=== PATIENT | female | born 1985 | race Caucasian/White ===

== ENCOUNTER 2020-05-20 15:39 | Emergency (ER) | payer MEDICARE, MEDICAID, SELFPAY ==
[2020-05-20 15:48] VITALS: BP 149/75; PULSE 78; RESP 20; TEMP 36.4; O2SAT 100
--- NOTE | 2020-05-20 16:16 | ED.SKABFB ---
HPI - Skin/Abscess/Foreign Bdy General Chief complaint: Skin/Abscess/Foreign Body Stated complaint: right leg pain/red/swollen Time Seen by Provider: 05/20/20 16:16 Source: patient and RN notes reviewed History of Present Illness HPI narrative: Patient is a [age]-year-old female who presents the urgent care with complaints of a painful knot to the right leg. Patient states is been there approximately 2 days and is increased in pain and swelling. Patient denies any drainage from the area. States that she believes it started out as a bug bite which is now infected. States that she is used salve to the area without any improvement. Denies of any fever, nausea, vomiting. No other acute complaints. No acute distress noted. Patient aware of the plan of care. Some parts of this dictation were generated by voice recognition software and may contain typographical and/or grammatical inaccuracies. Related Data Home Medications Medication Instructions Recorded Confirmed dulaglutide [Trulicity] 1.5 mg SUBCUT WEEKLY 05/20/20 05/20/20 famotidine 40 mg PO DAILY 05/20/20 05/20/20 glimepiride 4 mg PO DAILY 05/20/20 05/20/20 insulin glargine [Basaglar KwikPen 15 unit SUBCUT DAILY 05/20/20 05/20/20 U-100 Insulin] linagliptin [Tradjenta] 5 mg PO QAM 05/20/20 05/20/20 lisinopril 5 mg PO DAILY 05/20/20 05/20/20 metformin 1,000 mg PO BID 05/20/20 05/20/20 pravastatin 40 mg PO DAILY 05/20/20 05/20/20 verapamil 180 mg PO DAILY 05/20/20 05/20/20 Allergies Allergy/AdvReac Type Severity Reaction Status Date / Time No Known Drug Allergies Allergy Unknown Verified 05/20/20 15:56 Review of Systems Review of Systems: Narrative: CONSTITUTIONAL: Denies fever, chills, or sweats. EYES: Denies visual changes, redness, or discharge. ENT: Denies rhinorrhea, congestion, sore throat, or otalgia. CARDIOVASCULAR: Denies chest pain, palpitations, or edema. RESPIRATORY: Denies cough or dyspnea. GASTROINTESTINAL: Denies abdominal pain, nausea, vomiting, or diarrhea. GENITOURINARY: Denies dysuria or hematuria. SKIN: Reports of a painful swollen area to the right leg MUSCULOSKELETAL: Denies back pain, joint pain, or myalgia. NEUROLOGIC: Denies headache, numbness, or weakness. All other systems reviewed are negative, except as documented in HPI. PMFSH Comments At the time of my signature, I reviewed and agree with the nursing past medical, surgical, social, and family history. There is no relevant family history pertinent to the patient complaint. Exam Narrative: Exam Narrative: GENERAL: This is a well-nourished, well-developed patient, in no apparent distress. HEAD: normocephalic, atraumatic. EYES: PERRL. Sclera clear/white. Vision is grossly intact. EARS: External ears normal. NOSE: External nose normal with no obvious nasal discharge, nares without redness, no rhinorrhea. THROAT: Mucous membranes moist NECK: Neck supple SKIN: 2 X 2 centimeter of erythema with pinpoint yellow center without drainage to the lateral right leg/calf, 5 x 5 cm nonfluctuant surrounding. Warm, intact with no suspicious lesions or rash, good texture and turgor. NEURO: awake, alert, and oriented to person, place and time. There were no obvious focal neurologic abnormalities. EXTREMITIES: No clubbing, cyanosis, or edema. Course Vital Signs Vital signs: Vital Signs Temperature 97.5 F L 05/20/20 15:48 Pulse Rate 78 05/20/20 15:48 Respiratory Rate 20 05/20/20 15:48 Blood Pressure 149/75 H 05/20/20 15:48 Pulse Oximetry 100 05/20/20 15:48 Temperature 97.5 F L 05/20/20 15:48 Pulse Rate 78 05/20/20 15:48 Respiratory Rate 20 05/20/20 15:48 Blood Pressure 149/75 H 05/20/20 15:48 Pulse Oximetry 100 05/20/20 15:48 Reviewed?patient is informed that they may have pre-hypertension or hypertension based on a blood pressure reading in the department. I recommend the patient call the primary care provider listed on their discharge instructions or a physician of
== END 2020-05-20 16:33 | disposition home or self-care (01) ==
PROVIDERS: Emergency Provider Nurse Practitioner Family; PCP Internal Medicine
DX: L02.415 Cutaneous abscess of right lower limb (principal); I10 Essential (primary) hypertension; K21.9 Gastro-esophageal reflux disease without esophagitis; E11.9 Type 2 diabetes mellitus without complications
CPT/HCPCS: 99203; G0463

== ENCOUNTER 2023-04-21 14:34 | Emergency (ER) | payer MEDICARE, MEDICAID, SELFPAY ==
[2023-04-21 14:44] VITALS: BP 134/65; PULSE 95; RESP 20; TEMP 36.1; O2SAT 99
--- NOTE | 2023-04-21 15:06 | ED.GENADULT ---
HPI - General Adult General Chief complaint: Upper Respiratory Infection Stated complaint: head cold,cough Source: patient Mode of arrival: ambulatory Limitations: no limitations History of Present Illness HPI narrative: Patient presents for evaluation of sick symptoms since yesterday. Symptoms include sinus congestion, rhinorrhea, productive cough of yellow sputum. She denies any fever, chills, nausea, vomiting, diarrhea. She denies any recent sick contacts. She is diabetic. Home BS are in 150's. No additional complaints or concerns. Related Data Home Medications Medication Instructions Recorded Confirmed dulaglutide 1.5 mg/0.5 mL 1.5 mg subcut WEEKLY 05/20/20 04/21/23 subcutaneous pen injector (Trulicity) famotidine 40 mg tablet 40 mg PO BID 05/20/20 04/21/23 glimepiride 4 mg tablet 4 mg PO DAILY 05/20/20 04/21/23 insulin glargine 100 unit/mL (3 15 unit subcut DAILY 05/20/20 04/21/23 mL) subcutaneous pen (Basaglar KwikPen U-100 Insulin) lisinopril 5 mg tablet 5 mg PO DAILY 05/20/20 04/21/23 verapamil 180 mg tablet,extended 180 mg PO DAILY 05/20/20 04/21/23 release Allergies Allergy/AdvReac Type Severity Reaction Status Date / Time No Known Drug Allergies Allergy Unknown Verified 04/21/23 15:00 Review of Systems Review of Systems: CONSTITUTIONAL: Denies fever, chills, or sweats. EYES: Denies visual changes, redness, or discharge. ENT: Reports sinus congestion and rhinorrhea. Denies sore throat or otalgia. CARDIOVASCULAR: Denies chest pain, palpitations, or edema. RESPIRATORY: Reports cough. Denies dyspnea. GASTROINTESTINAL: Denies abdominal pain, nausea, vomiting, or diarrhea. GENITOURINARY: Denies dysuria or hematuria. SKIN: Denies rash or itching. MUSCULOSKELETAL: Denies back pain, joint pain, or myalgia. NEUROLOGIC: Denies headache, numbness, dizziness, or weakness. PSYCHIATRIC: Denies anxiety or depression. [facility] Past Medical History Medical History Diabetes Hypertension Surgical History Surgical History No pertinent past surgical history Family History Family History Mother Family history non-contributory Social History Social History Substance use: never Living arrangements: with family Gender identity (if verbalized by the patient): Female Spiritual care concerns: No Exam Narrative: GENERAL: Well-appearing, well-nourished, and in no acute distress. HEAD: Normocephalic, atraumatic. EYES: PERRLA and EOMI. ENT: Nares clear, no rhinorrhea or epistaxis. Mucous membranes moist. Oropharynx without tonsillar hypertrophy exudate or other lesions. Bilateral TMs pearly lord nonbulging NECK: Supple. No adenopathy or masses. No carotid bruits or JVD CHEST: Cough present on exam. Clear to auscultation. No respiratory distress. No wheezes rales or rhonchi HEART: Regular rate and rhythm. No murmur heard. Normal peripheral pulses. ABDOMEN: Soft, nontender, nondistended, normal active bowel sounds. EXTREMITIES: Normal range of motion. No edema. SKIN: Warm, dry, no rash. NEURO: No focal deficits. Alert and oriented x3. PSYCH: Normal mood and affect. Course Course Emergency Course: This is a 37-year-old female who presented for evaluation respiratory symptoms. COVID here positive. Advised on supportive measures. She is nontoxic appearing. Saturations normal. [id number] agents for symptom management. Advise quarantine and alignment with CDC recommendations. Go to the emergency department for shortness breath or worsening symptoms. Otherwise follow up with primary provider. Pt in agreement with plan of care. Level of Care: Express Care Visit Vital Signs Vital signs: Vital Signs Temperature 36.1 C L
== END 2023-04-21 15:07 | disposition home or self-care (01) ==
PROVIDERS: Emergency Provider Nurse Practitioner; PCP Internal Medicine
DX: U07.1 COVID-19 (principal); E11.9 Type 2 diabetes mellitus without complications; I10 Essential (primary) hypertension
CPT/HCPCS: 87426; 87804; 99213; C9803; G0463